=== PATIENT | male | born 1995 | race Caucasian/White ===

== ENCOUNTER 2020-04-12 11:39 | Emergency (ER) | payer BC, SELFPAY ==
[2020-04-12 11:39] VITALS: BP 154/102; PULSE 118; RESP 20; TEMP 36.9; O2SAT 98; BMI 33.9
--- NOTE | 2020-04-12 12:15 | HMH.EDUTC ---
[facility] [place] Clinical Impression: Fever Qualifiers: Fever type: unspecified Qualified Code(s): R50.9 - Fever, unspecified Disposition: Home, Self-Care Condition on Discharge: Good Instructions: Preventing the Spread of Coronavirus Discharge Instructions Additional Instructions: You have been tested for COVID19. Please isolate yourself as if you are positive until test results are received. Referrals: Toribio Baker MD [Primary Care Provider] - Time of Disposition: 12:17 Medical Decision Making - Deandre Inquiry Pt receiving controlled substance: No [facility] [place] - General Stated complaint: Covid test Time Seen by Provider: 04/12/20 12:15 - History of Present Illness Provider Complaint: Headache, fever, diarrhea yesterday. Feels better today but work has requested COVID19 testing before he can return to work. Denies ear pain, sore throat. Denies loss of taste or smell. Onset (ago): day(s) (1) Relieving factors: none Exacerbating factors: none Associated symptoms: fever/chills Treatments prior to arrival: none - Related Data Home Medications Medication Instructions Recorded Confirmed No Known Home Medications 12/28/17 12/28/17 Allergies Allergy/AdvReac Type Severity Reaction Status Date / Time INGREDIENT: NO KNOWN - NO Allergy Unknown Uncoded 12/28/17 14:00 KNOWN DRUG ALLERGY [facility] History - Hepatitis A Screen Attestation statement:: This patient has been screened for Hepatitis A risk factors. I have reviewed the patient's past medical history: Yes ROS Obtained: Yes All systems reviewed & no additional complaints - Constitutional Constitutional: Reports body ache, Reports fever(s) - Gastrointestinal Gastrointestingal: Reports: loose stools Physical Exam - General General appearance: alert, in no apparent distress - Head Head exam: atraumatic, normocephalic, normal inspection - Eye Eye exam: Present: normal appearance, PERRL, EOMI - ENT ENT exam: Present: normal exam, normal oropharynx, mucous membranes moist, TM's normal bilaterally, normal external ear exam - Neck Neck exam: Present: normal inspection, full ROM, trachea midline. Absent: meningismus, lymphadenopathy - Chest Chest inspection: Present: normal inspection, symmetric chest wall rise. Absent: tenderness - Respiratory Respiratory exam: Present: normal lung sounds bilaterally. Absent: respiratory distress - Cardiovascular Cardiovascular exam: Present: regular rate, normal rhythm. Absent: JVD - Abdominal Exam Abdominal exam: Present: soft, normal bowel sounds. Absent: distention, tenderness, guarding - Extremities Exam Extremities exam: Present: normal inspection, full ROM, normal capillary refill. Absent: calf tenderness - Back Exam Back exam: Present: normal inspection. Absent: tenderness - Neurological Exam Neurological exam: Present: alert, oriented X3 - Psychiatric Psychiatric exam: Present: normal affect, normal mood - Skin Skin exam: Present: warm, dry, intact, normal color - Lymphatic Lymphatic Findings: no adenopathy
[2020-04-12 12:41] VITALS: BP 154/102; PULSE 118; RESP 20; TEMP 36.9; O2SAT 98
[2020-04-13 09:05] LABS: Covid-19 Nasal PCR Sendout UK NOT DETECTED
== END 2020-04-12 12:43 | disposition home or self-care (01) ==
PROVIDERS: Emergency Provider Physician Assistant; PCP Emergency Medicine
DX: Z20.828 Contact with and (suspected) exposure to other viral communicable diseases (principal)
CPT/HCPCS: 99201; U0003

== ENCOUNTER 2020-06-03 09:16 | Emergency (ER) | payer BC, SELFPAY ==
[2020-06-03 09:28] VITALS: BP 113/59; PULSE 92; RESP 19; TEMP 37.3; O2SAT 99; BMI 33.9
--- NOTE | 2020-06-03 09:41 | HMH.EDUTC ---
[facility] [place] Clinical Impression: Encounter for laboratory testing for COVID-19 virus Disposition: Home, Self-Care Condition on Discharge: Good Instructions: Preventing the Spread of Coronavirus Discharge Instructions Additional Instructions: *Monitor Temp, Over the counter Motrin or Tylenol as directed/as needed Tylenol every 4 hours and Motrin every 6 hours (as long as your family doctor has told you that you can take it) for fever or pain. and straight to ER if unable to lower temp less than 101.0 after medication given *Warm salt water gargles may help to soothe the throat *Throat Lozenges *Warm fluids like tea with honey may help to soothe the throat *Sleep elevated *Humidifier/Vaporizer Follow up IMMEDIATELY for new or worsening symptoms or no Noticeable improvement over the next 48-72 hours. 911 for difficulty breathing or swallowing You were tested for today for COVID19 your test result should be back in the next 24-48 hours, you may call to the [facility] to see if your test results are back in the next 48 hours [phone] [facility] hours are 9am-9pm You was given a handout with instructions for Self Quarantine and Self isolation for while you wait on test results and what to do if they are positive If you are positive the Health Dept will be contacting you also Referrals: Toribio Baker MD [Primary Care Provider] - As needed Forms: Work/School Release Time of Disposition: 09:44 Medical Decision Making - Deandre Inquiry Pt receiving controlled substance: No Deandre was queried for this patient: No Vital Signs: 06/03/20 09:28 Temperature 99.2 F Temperature Source Oral Pulse Rate [Left] 92 H Respiratory Rate 19 Blood Pressure [Right Arm] 113/59 L Blood Pressure Mean [Right Arm] 77 Blood Pressure Source [Right Arm] Automatic Cuff Blood Pressure Position [Right Arm] Sitting 02 Sat by Pulse Oximetry 99 Oxygen Delivery Method Room Air Orders (Tests/Meds): ORDERS Category Date Time Status Covid-19 Nasal PCR Sendout [facility] 06/03/20 09:25 Ordered [facility] [place] - General Stated complaint: diarrhea,vomiting,headache,covid test Time Seen by Provider: 06/03/20 09:41 Mode of Arrival: Ambulatory Source of Information: Patient Limitations: No Limitations Description of Symptoms (Recalled from Triage Doc. by RN): Vomiting, diarrhea, headache x3 days HEENT Symptoms (Recalled from RN notes): No Resp Symptoms (Recalled from RN notes): No Skin Symptoms (Recalled from RN notes): No MS Symptoms (Recalled from RN notes): No Functional Status (Recalled from RN notes): wnl - History of Present Illness Provider Complaint: Patient states that he had vomiting, diarrhea and headache last week and stopped on Wednesday State that he has still been having a little body aches but wanted to come in and get tested for COVID Denies any symptoms since Wednesday - Related Data Home Medications Medication Instructions Recorded Confirmed No Known Home Medications 12/28/17 12/28/17 Allergies Allergy/AdvReac Type Severity Reaction Status Date / Time INGREDIENT: NO KNOWN - NO Allergy Unknown Uncoded 12/28/17 14:00 KNOWN DRUG ALLERGY - Worker's Comp Is this a Worker's Comp case?: No Is this an [facility] Worker's Comp?: No Is this a [facility] Worker's Comp?: No H History - Hepatitis A Screen Drug use history?: No High risk sexual behaviors?: No History of sexually transmitted infection?: No Currently employed?: No Childcare worker?: No Do you have indoor plumbing?: Yes Do you have electricity?: Yes Attestation statement:: This patient has been screened for Hepatitis A risk factors. I have reviewed the patient's past medical history: Yes ROS Obtained: Yes All systems reviewed & no additional complaints, Yes Systems reviewed as appropriate & no additional complaints - Constitutional Constitutional: Reports system reviewed and no additional complaints, except as docu, Reports body ache, Reports h
[2020-06-03 10:06] VITALS: BP 113/59; PULSE 92; RESP 19; TEMP 37.3; O2SAT 99
[2020-06-04 12:59] LABS: Covid-19 Nasal PCR Sendout Lex Not Detected
== END 2020-06-03 10:06 | disposition home or self-care (01) ==
PROVIDERS: Emergency Provider Nurse Practitioner; PCP Emergency Medicine
DX: Z20.828 Contact with and (suspected) exposure to other viral communicable diseases (principal); R51.9 Headache, unspecified; R11.10 Vomiting, unspecified
CPT/HCPCS: 99201; U0004